=== PATIENT | female | born 1985 | race Caucasian/White ===

== ENCOUNTER 2020-06-23 01:41 | Outpatient (CLI) | payer OTHER, SELFPAY ==
[2020-06-23 18:31] LABS: SARS-CoV-2 RNA PCR Negative
== END 2020-06-23 01:42 | disposition home or self-care (01) ==
LOC: ANHCOVIDDT 01:41
PROVIDERS: Visit Provider Obstetrics & Gynecology
DX: Z01.812 Encounter for preprocedural laboratory examination (principal); Z20.828 Contact with and (suspected) exposure to other viral communicable diseases
CPT/HCPCS: 87635; C9803; U0003

== ENCOUNTER 2020-06-25 09:09 | Outpatient (CLI) | payer OTHER, SELFPAY | END 2020-06-25 09:10 | disposition home or self-care (01) | LOC: ANHSURGERY 09:14 | PROVIDERS: PCP Internal Medicine; Visit Provider Obstetrics & Gynecology | DX: Z01.812 Encounter for preprocedural laboratory examination (principal); N94.6 Dysmenorrhea, unspecified | CPT/HCPCS: 36415; 86850; 86900; 86901 ==

== ENCOUNTER 2020-06-27 02:34 | Day surgery (SDC) | payer OTHER, SELFPAY ==
[2020-06-12 14:46] VITALS: BMI 34.1
[2020-06-27] VITALS (15 sets, daily range): BP systolic 115–142; BP diastolic 74–89; PULSE 77–100; RESP 16–20; TEMP 36.4–37.3; O2SAT 95–100
[2020-06-27] MEDS: ACETAMINOPHEN 500 MG TABLET 1000 MG PO (10:28)
[2020-06-27] MEDS: KETOROLAC 15 MG/ML VIAL (*BKC) IV PUSH (10:29)
[2020-06-27] MEDS: LACTATED RINGERS 1,000 ML 30 ML IV CONT ×2 (10:30→15:30)
--- NOTE | 2020-06-27 11:07 | WPDANESEPPF ---
Anes - Initial Pre Proc Eval Procedure: Operation Date: 06/27/20 12:30 Proposed Procedures p Total Laparoscopic Hysterectomy - Guilherme Hamilton MD Date/Time: 06/27/20 11:07 Surgeon: Guilherme Hamilton MD Pre Op Diagnosis: Dysmenorrhea Patient Data Age: 35 Gender: F Height: 5 ft 5 in Weight: 92.99 kg Allergies Allergy/AdvReac Type Severity Reaction Status Date / Time clindamycin Allergy Severe Difficulty Verified 08/09/19 09:41 Breathing adhesive tape Allergy Rash Verified 08/09/19 09:41 amoxicillin AdvReac Unknown TACHYCARDIA Verified 08/09/19 09:40 Home Medications Medication Instructions Recorded Confirmed Type multivitamin 1 tablet PO DAILY 07/26/19 06/12/20 History Patient hx anesthesia problems: none Family hx anesthesia problems: none [facility] Past Medical History Medical History Anxiety Depression Surgical History Surgical History History of tubal ligation Social History Social History Smoking status: Never smoker Alcohol intake: never Substance use: never Substance use type: does not use Living arrangements: with family Gender identity (if verbalized by the patient): Female Sexual Orientation (if Verbalized by the Patient): Straight or Heterosexual Spiritual care concerns: No Anes - Eval Final PreProcedure Day of Procedure 06/27/20 11:07 Patient weight: obese Heart: regular rate and rhythm Lungs: clear to auscultation Airway: Mallampati scale class 1 Neurological: alert and oriented Last oral intake: >/= 8 hours ASA classification: II Emergent: no Anesthetic plan: proceed Anesthesia type and monitoring: general ETT and standard monitoring Informed Consent: The patient's anesthetic plan and its attendant risks and benefits were discussed with the patient/family/POA. Questions were solicited and answers provided to the satisfaction of the patient/family/POA.
--- NOTE | 2020-06-27 12:14 | SUR.PREOP ---
pt informed of delay w/surgeon
--- NOTE | 2020-06-27 12:44 | WPDHPUPDATE1 ---
History and Physical Update Update Date/Time: 06/27/20 12:44 History and Physical has been reviewed, including an updated exam of the patient. There are NO changes in the patient's condition. Risks, benefits, and alternatives have been discussed and questions answered. Patient agrees to proceed with procedure.
[2020-06-27] MEDS: ceFAZolin 2 GM/D5W 50 ML 2 GM/50 ML BAG IVPB (13:54)
--- NOTE | 2020-06-27 15:24 | PM.PROC ---
Procedure Note - Detailed Date of procedure: 06/27/20 Pre-op diagnosis: Dysmenorrhea Myoma Post-op diagnosis: same Procedure performed: Total laparoscopic hysterectomy. Description of procedure: The patient was taken to the operating room. She was prepped and draped in the dorsal lithotomy position. A speculum was placed in the vagina. The cervix was grasped with a tenaculum. Stay sutures were placed at 3 and 9:00 a.m. of 0 Vicryl. The stay sutures were brought through the Dontae up. The CELESTINO manipulator was placed in the vagina with a fixed Dontae cup. The cup was then pushed up around the cervix. The sutures were tied to the handle of the CELESTINO manipulator. A 5 mm incision was made on the abdominal skin of the left upper quadrant using a scalpel. A 5 mm trocar was inserted into the intra-abdominal cavity under direct visualization the scope. Pneumoperitoneum was achieved. An 11 mm incision was made in the left lower quadrant of the abdomen with a scalpel. A 11 mm trocar was inserted into the intra-abdominal cavity under direct visualization the scope. A 5 mm periumbilical incision was made. A 5 mm scope was placed into the intra-abdominal cavity under direct visualization of the scope. The suspensory ligament of the ovary was cauterized and transected with ligature cautery in a bilateral fashion. The fallopian tubes were cauterized and transected in a bilateral fashion with LigaSure cautery. The round ligaments were cauterized and transected in bilateral fashion with LigaSure cautery. The round ligaments were cauterized and transected bilaterally with LigaSure cautery. The broad ligaments were cauterized and transected along the lateral aspects of the uterus down the level of the uterine arteries. A bladder flap was created using sharp and blunt dissection. The ureters were dissected out bilaterally down to the level of the uterine arteries. They could be visualized from the pelvic brim down the uterine arteries. Staying very close to the cervix the parametrium was cauterized transected in a stepwise fashion down to the level of the Dontae cup. The Bladder flap was moved distally over the Dontae cup using sharp and blunt dissection. The impression of the entire cup was visualized around the cervix. An incision was made with unipolar cautery down under the Dontae cup creating a colpotomy incision all the way around the cervix. The uterus was taken out through the vagina. A pneumo occluder was placed in the vagina. The vagina was closed with 0 V lock suture in a running fashion. The ureters were identified again and found to be intact to the level of the uterine arteries. The pelvis was irrigated with a copious amount of antibiotic irrigation. The pneumoperitoneum was reduced. The trocars were removed. The skin was closed subcuticular 4 Monocryl covered with Dermabond. The pneumo occluder was removed from the vagina. The vagina was irrigated with Betadine. The patient tolerated the procedure well. She was taken to the recovery room in stable condition. Sponge lap and needle counts were correct x2. Anesthesia: GETA Surgeon: Guilherme Hamilton MD Estimated blood loss (mL): 200 Drains: No Packing: No Pathology: yes Complications: No immediate complications Condition: stable Disposition: PACU Findings: Grossly normal appearing tubes and ovaries. Uterus - mildly enlarged, but vascular
[2020-06-27] MEDS: PROMETHAZINE HCL 25 MG/ML AMPUL 12.5 MG IV PUSH (16:13)
[2020-06-27] MEDS: SCOPOLAMINE 1.5 MG PATCH TRANSDERM (16:13)
--- NOTE | 2020-06-27 17:13 | PC.NURSE ---
This patient, Lidia Mitchell, was received from PACU per bed to room 289 on 06/27/20 at 1651. Patient/family oriented to unit policies and routines
[2020-06-27] MEDS: LACTATED RINGERS 1,000 ML 100 ML IV CONT (17:21)
[2020-06-27] MEDS: IBUPROFEN 600 MG TABLET PO (23:44)
[2020-06-28] VITALS: BP 111/74; PULSE 107; RESP 18; TEMP 37.3; O2SAT 98
[2020-06-28 04:00] VITALS: BP 111/72; PULSE 100; RESP 18; TEMP 37; O2SAT 98
[2020-06-28 07:57] VITALS: BP 120/80; PULSE 91; RESP 18; TEMP 36.5
--- NOTE | 2020-06-28 08:01 | PM.GYNPNOP ---
[employer] - A/P Postoperative Procedures: Procedures Operation Date: 06/27/20 12:30 Actual Procedures Side Surgeon p Total Laparoscopic Hysterectomy Guilherme Hamilton MD Postoperative day: 1 Postoperative status: doing well and other (Tollerating Regular Diet) Postoperative plan: routine post-op care and discharge Time Spent With Patient Time: Total time spent is greater than 50% in coordination of care (as documented) at patient's floor/unit and/or counseling patient: Time with patient: 15 - 25 minutes [employer]- PN:Subj Post-Op Subjective Date/time seen: 06/28/20 08:01 Subjective: patient reports feeling better, pain is well controlled and patient is tolerating oral intake Exam Const: General: cooperative, healthy appearing, comfortable and no acute distress Resp: Auscultation: no crackles, no rales, no rhonchi and no wheezes Cardio: Rhythm: regular rhythm Heart sounds: no click and no murmurs GI: Inspection: non-distended Auscultation: normal bowel sounds Other: Incisions - CDI Extrem: General: normal to inspection, no pedal edema and no calf tenderness [employer] - PN: Obj Data Vital Signs Vital Signs: Vital Signs - 24 hr 06/27/20 10:01 06/27/20 15:30 06/27/20 15:45 Temperature 97.8 F 97.8 F Pulse Rate 81 78 77 Respiratory Rate 20 17 18 Blood Pressure 126/83 133/83 132/74 Pulse Oximetry 100 97 96 06/27/20 16:00 06/27/20 16:15 06/27/20 16:30 Temperature Pulse Rate 97 93 90 Respiratory Rate 17 16 16 Blood Pressure 142/81 H 141/83 H 134/88 Pulse Oximetry 95 96 96 06/27/20 16:51 06/27/20 17:00 06/27/20 17:15 Temperature 97.6 F Pulse Rate 90 88 89 Respiratory Rate 16 Blood Pressure 120/85 131/84 115/78 Pulse Oximetry 97 98 96 06/27/20 17:30 06/27/20 17:45 06/27/20 18:00 Temperature Pulse Rate 91 95 93 Respiratory Rate Blood Pressure 118/78 119/79 134/88 Pulse Oximetry 96 96 100 06/27/20 18:30 06/27/20 19:00 06/27/20 20:00 Temperature 99.1 F Pulse Rate 100 97 99 Respiratory Rate 18 Blood Pressure 130/88 120/81 128/89 Pulse Oximetry 99 97 97 06/28/20 00:00 06/28/20 04:00 Temperature 99.2 F 98.6 F Pulse Rate 107 H 100 Respiratory Rate 18 18 Blood Pressure 111/74 111/72 Pulse Oximetry 98 98 Intake/Output Intake/Output: Intake & Output 06/25/20 06/26/20 06/27/20 06/28/20 23:59 23:59 23:59 23:59 Intake Total 1150 1500 Output Total 130 1900 Balance 1020 -400 Meds/Results Medications: Active Medications Generic Name Dose Route Start Last Admin Trade Name Freq PRN Reason Stop Dose Admin Hydrocodone Bitart/Acetaminophen 1 tab 06/27/20 16:39 Hydrocodone/Acetaminophen (*Crx) 5-325 Mg Tablet PO Q3H PRN Pain Rated 5 or Less Hydrocodone Bitart/Acetaminophen 1 tab 06/27/20 16:39 Hydrocodone/Acetaminophen (*Crx) 10-325 Mg Tablet PO Q3H PRN Pain Rated 6 or Greater Lactated Ringer's 1,000 mls @ 100 mls/hr 06/27/20 17:15 06/27/20 17:21 Lr - Lactated Ringers Iv IV CONT 100 mls/hr .Q10H MARTIN Administration Ibuprofen 600 mg 06/27/20 16:39 06/27/20 23:44 Ibuprofen 600 Mg Tablet PO 600 mg Q6H PRN Administration Cramping Ketorolac Tromethamine 30 mg 06/27/20 16:39 Ketorolac 30 Mg/Ml Vial (*Bkc) IV PUSH 07/02/20 16:40 Q6H PRN Pain Rated 4-6 Multivitamins Therapeutic 1 tablet 06/28/20 09:00 Multivitamins Therapeutic Tab (*Bkc) PO DAILY MARTIN Naloxone HCl 0.1 mg 06/27/20 16:39 Naloxone Hcl 0.4 Mg/Ml Vial IV PUSH Q2M PRN Respiratory rate less than 10 Ondansetron HCl 4 mg 06/27/20 16:39 Ondansetron Inj 4 Mg/2 Ml Vial IV PUSH Q6H PRN Nausea And Vomiting
--- NOTE | 2020-06-28 08:08 | PC.NURSE ---
Discharge instructions given including when to schedule follow up with Dr. chávez. Discharge packet given. No questions or concerns voiced. Very pleasant and cooperative.
[2020-06-28] MEDS: MULTIVITAMINS THERAPEUTIC TAB (*BKC) 1 TABLET PO (08:19)
[2020-06-28] MEDS: IBUPROFEN 600 MG TABLET PO (08:19)
--- NOTE | 2020-06-28 08:39 | PC.NURSE ---
Transdermal patch removed. Pt. states her dr. appt. with Dr. Hamilton is on Jul.04 at 2:35.
--- NOTE | 2020-06-28 08:59 | WPDANESPN ---
Anes - Prog Note Post-Op Date/Time: 06/28/20 08:59 Cardiovascular status: normal Respiratory status: normal Airway patency: baseline Mental status: baseline Post-Op hydration status: normal Vital Signs: Last Vital Signs Temp 36.5 C 06/28/20 07:57 Pulse 91 06/28/20 07:57 Resp 18 06/28/20 07:57 BP 120/80 06/28/20 07:57 Pulse Ox 98 06/28/20 04:00 Pain Score (VAS): 0 I/O: Intake & Output 06/27/20 06/28/20 06/28/20 23:59 07:59 15:59 Intake Total 200 1500 Output Total 130 1900 Balance 70 -400 Post-procedural complaints: none Patient Feedback: Patient satisfied with anesthetic care.
== END 2020-06-28 11:00 | disposition home or self-care (01) ==
LOC: ANHSURGERY 16:14 → ANHOB2 17:10
PROVIDERS: PCP Internal Medicine; Visit Provider Obstetrics & Gynecology
PROC: 0UT9FZZ Resection of Uterus, Via Natural or Artificial Opening With Percutaneous Endoscopic Assistance (ICD-10-PCS; CPT 58570; principal; 2020-06-27 12:30)
DX: N94.6 Dysmenorrhea, unspecified (principal); N80.0 Endometriosis of uterus; F41.8 Other specified anxiety disorders; E66.9 Obesity, unspecified; Z68.33 Body mass index [BMI] 33.0-33.9, adult
CPT/HCPCS: 58570; 88307; 99199; A9270; J0690; J1100; J1170; J1200; J1885; J2250; J2405; J2550; J2704; J2710; J3010; J7030; J7120

== ENCOUNTER 2021-04-19 16:21 | Emergency (ER) | payer OTHER, SELFPAY ==
--- NOTE | ~2021-04-19 | XR_ITS ---
XR wrist LT min 3V 04/19/2021 17:05 INDICATION: Left wrist pain PROCEDURE: 4 views left wrist COMPARISON: No prior studies for comparison. FINDINGS: Fracture, dislocation or subluxation is not identified. No fracture, subluxation or disloca tion. The soft tissues appear within normal limits. No foreign bodies are identified. IMPRESSION: 1: NO ACUTE BONE OR JOINT ABNORMALITY IDENTIFIED. Reviewed, dictated and finalized at location A.
[2021-04-19 16:31] VITALS: BP 136/88; PULSE 88; RESP 16; TEMP 36.9; O2SAT 99
--- NOTE | 2021-04-19 16:43 | ED.EXTPRO ---
HPI - Extremity Problem General Chief complaint: Extremity Injury, Upper Stated complaint: Left wrist Pain Time Seen by Provider: 04/19/21 16:43 Source: patient and RN notes reviewed Mode of arrival: ambulatory Limitations: no limitations History of Present Illness HPI Narrative: 35-year-old female presents concern for left wrist pain. Reports pain exacerbated for 1 week. Reports chronic problems with the left wrist. Reports history of injury as a child without seeking medical attention. Reports since then she has had intermittent pain. Reports she was told several years ago that she had a cyst in her hand, never received treatment for that. Reports proxy 1 week ago she was doing yard work, breaking up a concrete pad in her backyard. Reports the next day she began having wrist pain, decreased range of motion, stiffness. Reports the pain is exacerbated with movement of the fingers and radiates up to the elbow. Reports wrist tenderness MD Complaint: extremity pain Related Data Allergies Allergy/AdvReac Type Severity Reaction Status Date / Time clindamycin Allergy Severe Difficulty Verified 04/19/21 16:41 Breathing amoxicillin AdvReac Unknown TACHYCARDIA Verified 04/19/21 16:41 Review of Systems Review of Systems: CONSTITUTIONAL: Denies malaise, chills, sweats, or fever. 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 NEUROLOGIC: Denies numbness, weakness All systems reviewed & are unremarkable except as noted in HPI and below PMFSH Past Medical History Medical History Anxiety Depression Surgical History Surgical History History of tubal ligation Social History Social History Smoking status: Never smoker Alcohol intake: never Substance use: never Substance use type: does not use Gender identity (if verbalized by the patient): Female Sexual Orientation (if Verbalized by the Patient): Straight or Heterosexual Spiritual care concerns: No Comments At time of signature, agree with nursing past medical, surgical, social and family history. There is no relevant family history pertinent to the presenting complaint Exam Narrative: GENERAL: Well-appearing, well-nourished, and in no acute distress. HEAD: Normocephalic, atraumatic. EYES: PERRLA, conjunctivae clear NECK: Supple. CHEST: Speaks in full sentences. No respiratory distress. HEART: Regular rate and rhythm. Normal and equal peripheral pulses. EXTREMITIES: Left wrist, hand, digits have normal sensation, limited range of motion -unable to flex greater than 30 degrees. No edema or ecchymosis. 4/5 strength with wrist and digit flexion and extension. Normal sensation with sensitivity to light touch and pain. Anterior wrist tenderness. No open wounds, no skin tenting, no devitalized tissue or atrophy, no trophic changes, no obvious deformity, alignment normal, nearby joints and structures intact. Distal pulses palpable and equal bilaterally, skin warm, dry, pink. Capillary refill less than 3 seconds. SKIN: Warm, dry, no rash. NEURO: Alert and oriented x3. PSYCH: Normal mood and affect Course Course Emergency Course: Patient is aware of diagnosis, understands and agrees to treatment plan. Anticipatory guidance given. Patient agrees to follow-up as directed and is aware of reasons to seek care at the emergency department. Portions of this record may have been created with voice recognition software Vital Signs Vital signs: Vital Signs Temperature 98.5 F 04/19/21 16:31 Pulse Rate 88 04/19/21 16:31 Respiratory Rate 16 04/19/21 16:31 Blood Pressure 136/88 04/19/21 16:31 Pulse Oximetry 99 04/19/21 16:31 Temperature 98.5 F 04/19/21 16:31 Pulse Rate 88 04/19
== END 2021-04-19 17:34 | disposition home or self-care (01) ==
PROVIDERS: Emergency Provider Nurse Practitioner; PCP Internal Medicine
DX: M25.532 Pain in left wrist (principal)
CPT/HCPCS: 73110; 99213; G0463

== ENCOUNTER 2023-05-29 16:46 | Emergency (ER) | payer OTHER, SELFPAY ==
--- NOTE | ~2023-05-29 | XR_ITS ---
EXAMINATION: XR chest 2V 05/29/2023 18:07 INDICATION: Cough PROCEDURE: 2 view chest COMPARISON: 03/24/2014 FINDINGS: The lungs are clear. The cardiomediastinal silhouette is within normal limits. There are no pleural effusions. There is no pneumothorax suspected. IMPRESSION: 1: NO ACUTE CARDIOPULMONARY DISEASE. Reviewed, dictated and finalized at location A.
[2023-05-29 17:09] VITALS: BP 123/83; PULSE 86; RESP 16; TEMP 37.2; O2SAT 98
--- NOTE | 2023-05-29 17:50 | ED.URI ---
HPI - URI/Sore Throat General Chief Complaint: Upper Respiratory Infection Stated Complaint: Bronchitis symptoms Source: patient Mode of arrival: ambulatory Limitations: no limitations History of Present Illness HPI Narrative: 37 y/o female presented for c/o coughing for one month. Also reports hoarse voice x2 days. Today started with painful ribs with deep breaths, sore throat, and decreased appetite. Denies sob, wheezing, sinus congestion, n/v/d/f/c. Tested negative for covid. Not taking anything for symptoms. 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 Related Data Home Medications Medication Instructions Recorded Confirmed omega-3 fatty acids 300 mg capsule 1,500 mg PO DAILY 05/29/23 05/29/23 Allergies Allergy/AdvReac Type Severity Reaction Status Date / Time clindamycin Allergy Severe Difficulty Verified 05/29/23 16:59 Breathing amoxicillin AdvReac Unknown TACHYCARDIA Verified 05/29/23 16:59 Review of Systems Review of Systems: CONSTITUTIONAL: Denies body aches, fever, chills, or sweats. EYES: Denies visual changes, redness, or discharge. ENT: Denies rhinorrhea, congestion, reports sore throat hoarse voice CARDIOVASCULAR: Denies chest pain, palpitations, or edema. RESPIRATORY: Reports cough, denies sob, wheezing. GASTROINTESTINAL: Denies abdominal pain, nausea, vomiting, or diarrhea. GENITOURINARY: Denies dysuria or hematuria. SKIN: Denies rash, itching, or wounds. MUSCULOSKELETAL: Denies back pain, joint pain, or myalgia. NEUROLOGIC: Denies headache, numbness, tingling, or weakness. All systems reviewed & are unremarkable except as noted in HPI and below PMFSH Past Medical History Medical History Anxiety Depression Surgical History Surgical History History of tubal ligation Social History Social History Smoking status: Never smoker Alcohol intake: never Substance use: never Substance use type: does not use Living arrangements: with family Gender identity (if verbalized by the patient): Female Sexual Orientation (if Verbalized by the Patient): Straight or Heterosexual Spiritual care concerns: No Comments At time of signature, I have reviewed and agree with nursing past medical, surgical, social and family history unless otherwise noted. Please see nursing chart for further information. There is no relevant family history pertinent to the presenting complaint Exam Narrative: GENERAL: Well-appearing, in no acute distress. EYES: EOMI. No redness or drainage. Conjunctivae normal. ENT: Mucous membranes pink and moist. No rhinorrhea. TMs normal bilaterally. Throat normal. Hoarse voice. Uvula midline. NECK: Normal AROM. Supple. CHEST: No respiratory distress. Lungs clear to all berrios. HEART: Regular rate and rhythm. No murmur appreciated. ABDOMEN: Soft, nontender, nondistended, normal active bowel sounds. EXTREMITIES: Normal range of motion. No edema. SKIN: Warm, dry, no rash. Capillary refill normal. Normal skin turgor. NEURO: Alert and oriented x3. Gait steady. PSYCH: Normal affect. Course Course Emergency Course: Patient is aware of diagnosis, understands and agrees to treatment plan. Anticipatory guidance given. Patient agrees to follow-up as directed and is aware of reasons to seek care at the emergency department. Portions of this record may have been created with voice recognition software Level of Care: Express Care Visit Vital Signs Vital signs: Vital Signs Temperature 98.9 F 05/29/23 17:09 Pulse Rate 86 05/29/23 17:09 Respiratory Rate 16 05/29/23 17:09 Blood Pressure 123/83 05/29/23 17:09 Pulse Oximetry 98 05/29/23 17:09 Temperature 98.9 F 05/29/23 17:09 Pulse Rate 86 05/29/23 17:09 Respiratory Rate 16 05/29/23 17:09 Blood Pressur
== END 2023-05-29 18:30 | disposition home or self-care (01) ==
PROVIDERS: Emergency Provider Nurse Practitioner Family
DX: B34.9 Viral infection, unspecified (principal)
CPT/HCPCS: 71046; 87081; 87880; 99213; G0463